=== PATIENT | female | born 1980 | race Caucasian/White ===

== ENCOUNTER 2024-08-18 16:14 | Emergency (ER) | payer OTHER, SELFPAY ==
--- NOTE | ~2024-08-18 | CT_ITS ---
CLINICAL HISTORY: swelling, infection? CT soft tissue neck with contrast Comparison: None Findings: The visualized intracranial contents are unremarkable. Mild asymmetric soft tissue prominence of the right Cata tonsillar fossa can be seen with mild tonsillitis. No Cata tonsillar collections. Scattered prominent lymph nodes throughout the neck, may be reactive however are nonspecific. Salivary glands are unremarkable. No sialoliths. No suspicious thyroid nodules. No consolidation at the lung apices. No acute fracture or dislocation. 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 IMPRESSION: Question mild right palatine tonsillitis. This document has been electronically signed by: Barrington Khan MD on 08/18/2024 21:19:10
[2024-08-18 17:30] VITALS: BP 154/86; PULSE 92; RESP 18; TEMP 37; O2SAT 98; BMI 43.6
--- OUTSIDE RECORDS SUMMARY | 2024-08-18 17:45 | XMS_ITS | Continuity of Care Document ---
Author Organization [facility] Address [address] [place] [id number] Care Team Providers Care Laborer [employer] Name Role Phone Courtney Diaz MD, Angelika Primary Care Physician ( [phone] Encounter [facility] Date(s): 07/17/24 - 08/16/24 [facility] [address] [place] [address]- Attending Physician: Tere Millan Admitting Physician: Tere Millan Referring Physician: AdmtrTere Encounter Type: Triage Allergies, Adverse Reactions, Alerts No Known Allergies Medications amLODIPine 10 mg oral tablet 10 mg, 1, tablet, By Mouth, Daily, # 90 tablet, Refills 1, Tot. Refills 1, Maintenance, 07/25/24 3:44:00 PM EDT, Route to Pharmacy Electronically, [id number], Partial fill upon patient request if the prescription is for a schedule II opioid drug., 166.2, cm, 07/16/24 13:42:00 EDT, Height Start Date: 07/25/24 Status: Ordered Quantity: 90.0 Unit: tablet Repeat number: 2 cetirizine 10 mg oral tablet See Instructions, 1 tab by mouth every day., # 60 tablet, 1 Refills, Maintenance, 07/27/24 9:43:00 AMEDT, Tablet, [facility], Partial fill upon patient request if the prescription isfor a schedule II opioid drug., 166.2, cm, 07/16/24 13:42:00 EDT, Height Start Date: 07/27/24 Status: Ordered Quantity: 60.0 Unit: tablet Repeat number: 2 fluticasone 50 mcg/inh nasal spray 1 sprays = 50 mcg, Nares, Both, 2 times a day, # 16 Gm, 2 Refills, Maintenance, 08/05/24 2:45:00 PM EDT, [place], [facility], Partial fill upon patient request if the prescription is for a schedule II opioid drug., 1 sprays Nares, Both 2 times a day, 166.2, cm, 07/16/24 13:42:00 EDT,Height Start Date: 08/05/24 Status: Ordered Quantity: 16.0 Unit: g Repeat number: 3 hydrochlorothiazide 12.5 mg oral tablet 1 tablet = 12.5 mg, By Mouth, Daily, # 90 tablet, 1 Refills, Maintenance, 07/25/24 3:44:00 PM EDT, Tablet, [facility], Partial fill upon patient request if the prescription is for a schedule II opioid drug., 166.2, cm, 07/16/24 13:42:00 EDT, Height Start Date: 07/25/24 Status: Ordered Quantity: 90.0 Unit: tablet Repeat number: 2 Multivitamin 1 tablet, By Mouth, Daily, 0 Refills, Maintenance, 06/21/24 1:32:00 PM EDT, Partial fill upon patient request if the prescription is for a schedule II opioid drug. Start Date: 06/21/24 Status: Ordered Repeat number: 1 tiZANidine 2 mg oral tablet 4 mg, 2, tablet, By Mouth, Daily, PRN, Refills 0, Maintenance, Anxiety, 02/14/24 2:08:00 PM EST, Partial fill upon patient request if the prescription is for a schedule II opioid drug. Start Date: 02/14/24 Status: Ordered Repeat number: 1 Vitamin D3 1000 intl units oral capsule 1 capsule = 25 mcg, By Mouth, Daily, # 75 capsule, 0 Refills, Maintenance, 05/23/24 11:18:00 AM EST,Capsule, Partial fill upon patient request if the prescription is for a schedule II opioid drug. Start Date: 05/23/24 Status: Ordered Quantity: 75.0 Unit: capsule Repeat number: 1 Zepbound Pen 5 mg/0.5 mL subcutaneous solution = 5 mg, Subcutaneous Injection, Every week, rotate injection sites, # 2 mL, 0 Refills, Maintenance,06/04/24 3:12:00 PM EDT, Solution, [facility], Partial fill upon patient request if the prescription is for a schedule II opioid drug., 166.2, cm, 06/04/24 15:02:00 EDT, Height Start Date: 06/04/24 Status: Ordered Quantity: 2.0 Unit: mL Repeat number: 1 Problem List Condition Confirmation Course Effective Dates Status Health St atus Informant Hypertension Confirmed Active Post-nasal drip Confirmed Active Prediabetes Confirmed Active High cholesterol Confirmed Active Severe obesity Confirmed Active Social History Social History Type Response Tobacco Use: 4 or less cigar ettes(less than 1/4 pack)/day in last 30 days. Sex Female Sex Representation Female (finding) Patient Care team information Care Team Personnel Name: Courtney Diaz MD, Angelika Position: [facility] Physician - Primary Care Member Role: PCP Address: [address] [place] [address] Telecom: Care Team Related Persons Name: EV PADILLA Insurance Providers Guarantor name: LUPE MESA Health Plan Information #: 1 Payer: [employer] Member Number: NA Policy Number: NA Group Number: NA
[2024-08-18 19:53] LABS: MANUAL DIFF FLAG NO
[2024-08-18 19:54] LABS: Basophils Absolute Auto 0.1 X10*3/uL (0.0-0.2); Basophils Percent Auto 0.6 % (0-2); Eosinophils Absolute Auto 0.2 X10*3/uL (0.0-0.4); Eosinophils Percent Auto 1.8 % (0-4); Hematocrit 36.2 % (37.0-47.0); Hemoglobin 12.7 g/dl (12.0-16.0); Imm Gran Abs Auto 0.03 X10*3/uL (0.00-0.03); Imm Gran Pct Auto 0.3 % (0.0-0.4); Lymphocytes Absolute Auto 3.2 X10*3/uL (1.2-4.9); Lymphocytes Percent Auto 31.8 % (20-40); Mean Corpuscular HGB Conc 35.1 g/dl (31.0-35.0); Mean Corpuscular Hemoglobin 28.3 pg (27.0-33.0); Mean Corpuscular Volume 80.8 fL (80.0-98.0); Mean Platelet Volume 11.2 fL (9.4-12.3); Monocytes Absolute Auto 0.5 X10*3/uL (0.1-1.2); Monocytes Percent Auto 4.6 % (2-11); Neutrophils Absolute Auto 6.1 x10*3/uL (2.0-8.3); Neutrophils Percent Auto 60.9 % (45-73); Platelet Count 246 X10*3/uL (160-400); Red Blood Count 4.48 X10*6/uL (4.20-5.50); White Blood Count 10.1 X10*3/uL (4.8-10.8)
[2024-08-18 20:15] LABS: Alanine Aminotransferase 21 U/L (0-31); Albumin Level 4.5 g/dL (3.5-5.0); Alkaline Phosphatase 104 U/L (39-117); Anion Gap 15 (12-20); Aspartate Amino Transferase 19 U/L (5-31); Bilirubin Total 0.4 mg/dL (0.0-1.0); Blood Urea Nitrogen 18 mg/dL (9-16); Calcium 9.1 mg/dL (8.4-10.2); Carbon Dioxide 21 mmol/L (22-29); Chloride 109 mmol/L (96-108); Creatinine Clr Calc Pharmacy 136.3; Estimated Glomerular Filt Rate > 60; Glucose Random 114 mg/dL (60-115); HCG Quantitative < 2 mIU/mL; Magnesium 2.1 mg/dL (1.6-2.6); Potassium 4.1 mmol/L (3.3-5.1); Sodium 141 mmol/L (135-145); Total Protein 7.3 g/dL (6.5-8.0)
--- NOTE | 2024-08-18 20:34 | PC.NURSE ---
pt had infiltration during CT scan to RUE with previous IV. this RN placed 20g IV to L. TREY. PA aware. heat pack given for comfort.
[2024-08-18] MEDS: iohexoL 350 MG/ML 100 ML INFUS..BTL IV (20:45)
--- NOTE | 2024-08-18 20:54 | ED_ITS ---
HPI - General Adult General Chief complaint: Ear Problems Stated complaint: citlali ear pain/swelling around left ear and neck Time Seen by Provider: 08/18/24 18:11 Source: patient Limitations: no limitations History of Present Illness ED Provider: Tiana Roque PA-C HPI narrative: 44-year-old female with history of obesity and a new diagnosis of left-sided thyroid nodule currently pending biopsy presents with multiple complaints. Patient states she has been having ongoing bilateral ear pain for 3 months. She has been placed on otic drops, followed by 2 courses of antibiotics, the pain persists. Patient states she is now having radiation of discomfort bilaterally across lower jaw line into the neck. Patient states she is now experiencing swelling across anterior neck. Associated ongoing nasal congestion. Denies redness, fever or sore throat. Denies odynophagia, dysphagia. Denies trismus or drooling. Patient is currently pending ENT consult. Related Data Allergies Allergy/AdvReac Type Severity Reaction Status Date / Time No Known Allergies Allergy Verified 08/18/24 17:34 Review of Systems 2 Review of Systems: Yes all other systems are reviewed and are negative Constitutional: Constitutional: Denies fatigue and Denies fever(s) ENT: Reports otalgia, Reports nasal congestion, Reports neck pain, Denies odynophagia, Denies sore throat and Denies throat swelling Cardiovascular: Cardiovascular: Denies chest pain and Denies dyspnea Respiratory: Respiratory: Denies cough and Denies dyspnea Gastrointestinal: Gastrointestinal: Denies abdominal pain and Denies odynophagia Musculoskeletal: Musculoskeletal: Reports neck pain Endocrine: Endocrine: Denies fatigue Allergic/Immunologic: Allergic/Immunologic: Denies throat swelling PMFSH Past Medical History Attestation statement: The following information was validated with the patient. Social History Social History Advance Directives: No Advance Directives Information Provided: Yes Physical Exam ED Vital Signs: Vital Signs - 24 hr 08/18/24 17:30 Temperature 98.6 F Pulse Rate 92 Respiratory Rate 18 Blood Pressure 154/86 H Pulse Oximetry 98 Oxygen Delivery Method Room Air BMI result Body Mass Index 43.6 Const Other: Alert Orientation/consciousness: patient oriented x3 HENMT Other: Bilateral TMs are opaque without overlying erythema or exudate, the external ear canals are without erythema or exudate, no tragal tenderness, no erythema redness swelling or pain elicited over bilateral mastoid bones. Oropharynx is clear, tonsils are prominent, no erythema, uvula midline, no trismus no drooling, no sublingual fluctuance, no swelling inferior to the jawline that has objective Neck Other: Full range of motion Resp Effort & Inspection: normal respiratory effort Cardio Other: Normal peripheral perfusion Skin Other: Warm dry no rash Neuro General: patient oriented x3, gait normal, no focal motor deficits and CN's II- XI intact bilaterally Psych Other: Cooperative Medications Administered Discontinued Medications Generic Name Dose Route Start Last Admin Trade Name Errol PRN Reason Stop Dose Admin Iohexol 100 ml 08/18/24 20:44 08/18/24 20:45 Iohexol 350 Mg/Ml 100 Ml Infus..Btl IV 08/18/24 20:45 60 ml ONCE ONE Administration Medical Decision Making Medical Decision Making MDM Narrative: 44-year-old female with history of obesity and a new diagnosis of left-sided thyroid nodule currently pending biopsy presents with multiple complaints. Patient states she has been having ongoing bilateral ear pain for 3 months. She has been placed on otic drops, followed by 2 courses of antibiotics, the pain persists. Patient states she is now having radiation of discomfort bilaterally across lower jaw line into the neck. Patient states she is now experiencing swelling across anterior neck. Associated ongoing nasal congestion. Denies redness, fever or sore throat. Denies odynophagia, dysphagia. Denies trismus or drooling. Patient is currently pending ENT consult. Problem: Obesity, new thyroid nodule History: Per patient I have considered the following differential diagnoses: Om, OE, serous otitis, mastoiditis, strep pharyngitis, RPA, CLOTHING PATTERN PREPARER, John angina, goiter Plan: In regard to the ear pain, the patient has serous otitis without infection, with concurrent nasal congestion, which fits that clinical picture. We will suggest the use of Zyrtec.. In regard to the neck swelling, it is highly subjective. She does not have a sore throat, they are not exam findings consistent with strep pharyngitis. There are also no exam findings consistent with a RPA or CLOTHING PATTERN PREPARER, or John angina. The patient is insistent that she is having new swelling and pain. We will obtain a CT scan of the neck. We will require screening labs prior to the study. I have independently reviewed the following tests: Labs: No leukocytosis, not anemic, no electrolyte abnormality, not A CT neck: Findings: The visualized intracranial contents are unremarkable. Mild asymmetric soft tissue prominence of the right Cata tonsillar fossa can be seen with mild tonsillitis. No Cata tonsillar collections. Scattered prominent lymph nodes throughout the neck, may be reactive however are nonspecific. Salivary glands are unremarkable. No sialoliths. No suspicious thyroid nodules. No consolidation at the lung apices. No acute fracture or dislocation. 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 IMPRESSION: Question mild right palatine tonsillitis. Lab Data 08/18/24 19:48 08/18/24 19:48 Labs: Lab Results 08/18/24 Range/Units 19:48 WBC 10.1 (4.8-10.8) X10*3/uL RBC 4.48 (4.20-5.50) X10*6/uL Hgb 12.7 (12.0-16.0) g/dl Hct 36.2 L (37.0-47.0) % MCV 80.8 (80.0-98.0) fL MCH 28.3 (27.0-33.0) pg MCHC 35.1 H (31.0-35.0) g/dl RDW 12.0 (11.0-16.0) % Plt Count 246 (160-400) X10*3/uL MPV 11.2 (9.4-12.3) fL Immature Gran % (Auto) 0.3 (0.0-0.4) % Neut % (Auto) 60.9 (45-73) % Lymph % (Auto) 31.8 (20-40) % Alpine % (Auto) 4.6 (2-11) % Eos % (Auto) 1.8 (0-4) % Baso % (Auto) 0.6 (0-2) % Lymph # (Auto) 3.2 (1.2-4.9) X10*3/uL Alpine # (Auto) 0.5 (0.1-1.2) X10*3/uL Eos # (Auto) 0.2 (0.0-0.4) X10*3/uL Baso # (Auto) 0.1 (0.0-0.2) X10*3/uL Abs Immat Gran (auto) 0.03 (0.00-0.03) X10*3/uL Absolute Neuts (auto) 6.1 (2.0-8.3) x10*3/uL Absolute Nucleated RBC 0.000 (0.0-0.012) X10*3/uL Nucleated RBC % (auto) 0.0 (0.0-0.2) /100WBC Sodium 141 (135-145) mmol/L Potassium 4.1 (3.3-5.1) mmol/L Chloride 109 H (96-108) mmol/L Carbon Dioxide 21 L (22-29) mmol/L Anion Gap 15 (12-20) BUN 18 H (9-16) mg/dL Creatinine 0.71 (0.5-1.4) mg/dL Estim Creat Clear Calc 136.3 Estimated GFR > 60 Random Glucose 114 (60-115) mg/dL Calcium 9.1 (8.4-10.2) mg/dL Magnesium 2.1 (1.6-2.6) mg/dL Total Bilirubin 0.4 (0.0-1.0) mg/dL AST 19 (5-31) U/L ALT 21 (0-31) U/L Alkaline Phosphatase 104 (39-117) U/L Total Protein 7.3 (6.5-8.0) g/dL Albumin 4.5 (3.5-5.0) g/dL Beta HCG, Quant < 2 mIU/mL Discharge Plan Discharge Clinical Impression: Acute serous otitis media of both ears Patient Disposition: Home, Self-Care Instructions: Fluid In The Ear (Serous Otitis Media) (ED) Additional Instructions: The CT scan of the neck was normal. You were found to have fluid within the inner ears, this is called serous otitis. This is not an infection. This is congestion. Start using [id number] Zyrtec, use it indefinitely. The Flonase can also help alleviate the nasal congestion, you could also try [id number] nasal saline sprays. Keep your pending ENT follow up. Print Language: [place] Verdean
[2024-08-18 21:41] VITALS: BP 138/68; PULSE 92; RESP 18; TEMP 37; O2SAT 98
== END 2024-08-18 21:41 | disposition home or self-care (01) ==
PROVIDERS: Physician Assistant Medical; Emergency Provider Emergency Medicine
DX: H92.03 Otalgia, bilateral (principal); H65.93 Unspecified nonsuppurative otitis media, bilateral; M54.2 Cervicalgia; Z79.899 Other long term (current) drug therapy
CPT/HCPCS: 36415; 70491; 80053; 83735; 84702; 85025; 99283; 99284; Q9967

== ENCOUNTER → 2024-08-18 19:17 | Outpatient (BNV) | payer OTHER, SELFPAY | PROVIDERS: Emergency Provider Emergency Medicine; Visit Provider Radiology Diagnostic Radiology | DX: R22.1 Localized swelling, mass and lump, neck (principal) | CPT/HCPCS: 70491 ==